=== PATIENT | female | born 1995 | race Hispanic/Latino ===

== ENCOUNTER 2024-10-23 17:12 | Emergency (ER) | payer OTHER ==
[~2024-10-23] VITALS: Ht 157.5 cm; Wt 107.5 kg
[2024-10-23 17:29] VITALS: PULSE 114; RESP 18; TEMP 98.5
[2024-10-23] MEDS ORDERED: LOVENOX40 MG/0.4 SC (17:33)
[2024-10-23] MEDS ORDERED: HUMULIN R100 UNIT/2 INJ (17:33)
[2024-10-23 18:06] LABS: BASOPHILS % 0.5 % (0.0-1.0); HEMATOCRIT 37.3 % (34.2-44.1); HEMOGLOBIN 12.9 g/dL (12.0-16.0); LYMPHOCYTES # (AUTO) 0.4 (1.0-3.2); LYMPHOCYTES % 6.2 % (18.0-39.1); MEAN CORPUSCULAR HGB CONC 34.6 g/dL (31-35); MEAN CORPUSCULAR VOLUME 86.7 fL (81-99); MONOCYTES # (AUTO) 0.4 (0.2-0.8); MONOCYTES % 5.9 % (4.4-11.3); NEUTROPHILS # (AUTO) 5.6 (2.1-6.9); NEUTROPHILS % 86.9 % (38.7-80.0); PLATELET COUNT 307 x10e3/uL (140-360); RED CELL DISTRIBUTION WIDTH 13.2 % (11.7-14.4); WHITE BLOOD COUNT 6.46 x10e3/uL (4.8-10.8)
[2024-10-23 18:11] LABS: BILIRUBIN,URINE SMALL (NEGATIVE); CLARITY,URINE SL CLOUDY (CLEAR); COLOR,URINE YELLOW (YELLOW); GLUCOSE, URINE 1+ (NEGATIVE); KETONES,URINE >=160 (NEGATIVE); LEUKOCYTE ESTERASE ,URINE NEGATIVE (NEGATIVE); NITRITE,URINE NEGATIVE (NEGATIVE); PH,URINE 6 (5 - 7); PROTEIN,URINE DIPSTICK 1+ (NEGATIVE); URINE UROBILINOGEN 0.2 mg/dL (0.2 - 1)
[2024-10-23 18:15] LABS: BACTERIA,URINE FEW /HPF; EPITHELIAL CELLS,URINE MANY /LPF; MUCUS,URINE MANY; RBC,URINE 0-5 /HPF (0-5); WBC,URINE (MAN) 0-5 /HPF (0-5)
[2024-10-23] MEDS: ONDANSETRON HCL INJ 2MG/ML 2ML 2 MG/ML VIAL IV STA (18:22)
[2024-10-23] MEDS: SODIUM CHLORIDE 0.9% 1000ML 1,000 ML IV ONE (18:22)
[2024-10-23 18:23] LABS: ALBUMIN 3.3 g/dL (3.5-5.0); ALBUMIN/GLOBULIN RATIO 0.9 (0.8-2.0); ANION GAP 16.4 mmol/L (8-16); BILIRUBIN,TOTAL 0.3 mg/dL (0.2-1.2); CALCIUM 8.7 mg/dL (8.4-10.2); CREATININE, SERUM 0.61 mg/dL (0.57-1.11); TOTAL PROTEIN 7.1 g/dL (6.5-8.1)
[2024-10-23] MEDS: DICYCLOMINE HCL 20 MG/2 ML VIAL IM ONE (18:23)
[2024-10-23 18:25] LABS: POTASSIUM 3.4 mmol/L (3.5-5.1)
[2024-10-23] MEDS ORDERED: ONDANSETRON ODT4 MG SL (19:26)
[2024-10-23] MEDS ORDERED: DICYCLOMINE HCL20 MG PO (19:26)
[2024-10-23 22:41] VITALS: BP 121/95; PULSE 89; RESP 18; TEMP 98.2; O2SAT 98
== END 2024-10-23 19:45 | disposition home or self-care (01) ==
LOC: ER 18:10
DX: O21.0 Mild hyperemesis gravidarum (principal); R19.7 Diarrhea, unspecified; E11.65 Type 2 diabetes mellitus with hyperglycemia; D68.51 Activated protein C resistance
CPT/HCPCS: 36415; 80053; 81001; 85025; 99284; J0500; J2405; J7030